=== PATIENT | female | born 1960 | race American Indian/Alaskan Native ===

== ENCOUNTER 2019-03-13 19:56 | Emergency (ER) | payer OTHER ==
--- NOTE | 2019-03-13 20:38 | Event Note ---
ED Screening Note ED Screening Note: large right mandibular abscess and dental pain diabetic abc intact This initial assessment/diagnostic orders/clinical plan/treatment(s) is/are subject to change based on patients health status, clinical progression and re- assessment by fellow clinical providers in the ED. Further treatment and workup at subsequent clinical providers discretion. Patient/guardian urged not to elope from the ED as their condition may be serious if not clinically assessed and managed. Initial orders include: labs
[2019-03-13 20:50] LABS: Hematocrit 38.4 % (30.3-42.9); Hemoglobin 12.7 gm/dl (10.1-14.3); Mean Corpuscular HGB Conc 33 % (30-34); Platelet Count 215 K/mm3 (140-440); Red Blood Count 5.64 M/mm3 (3.65-5.03); Red Cell Distribution Width 16.6 % (13.2-15.2)
[2019-03-13 20:51] LABS: Mean Corpuscular Volume 68 fl (79-97)
[2019-03-13 21:31] LABS: BUN/Creatinine Ratio 34; Blood Urea Nitrogen 17 mg/dL (7-17); Calcium 9.5 mg/dL (8.4-10.2); Hemolysis Index 15
[2019-03-13] MEDS ORDERED: TRIMOX PO ONE (22:00)
[2019-03-13] MEDS ORDERED: IBUPROFEN PO ONE (22:00)
--- NOTE | 2019-03-13 22:10 | Emergency Department Report ---
ED ENT HPI - General Chief complaint: Dental/Oral Stated complaint: TOOTHACHE SWOLLEN FACE AND GUMS Time Seen by Provider: 03/13/19 20:37 Source: patient Mode of arrival: Ambulatory Limitations: No Limitations - History of Present Illness MD complaint: tooth pain Onset/Timin -: days(s) Location: tooth # (28) Severity: severe Quality: stabbing, aching Consistency: constant Improves with: none Associated Symptoms: gum swelling, toothache. denies: fever, cough, pain with swallowing, sore throat - Related Data Previous Rx's Medication Instructions Recorded Last Taken Type Acetaminophen/Codeine [Tylenol 1 tab PO Q4HR PRN #12 tablet 03/13/19 Unknown Rx /Codeine # 3 tab] Amoxicillin [Amoxicillin TAB] 875 mg PO BID #20 tablet 03/13/19 Unknown Rx Ibuprofen [Motrin 800 MG tab] 800 mg PO Q8HR PRN #30 tablet 03/13/19 Unknown Rx Allergies Allergy/AdvReac Type Severity Reaction Status Date / Time No Known Allergies Allergy Unverified 03/13/19 21:59 ED Dental HPI - General Chief complaint: Dental/Oral Stated complaint: TOOTHACHE SWOLLEN FACE AND GUMS Time Seen by Provider: 03/13/19 20:37 Source: patient Mode of arrival: Ambulatory Limitations: No Limitations - Related Data Previous Rx's Medication Instructions Recorded Last Taken Type Acetaminophen/Codeine [Tylenol 1 tab PO Q4HR PRN #12 tablet 03/13/19 Unknown Rx /Codeine # 3 tab] Amoxicillin [Amoxicillin TAB] 875 mg PO BID #20 tablet 03/13/19 Unknown Rx Ibuprofen [Motrin 800 MG tab] 800 mg PO Q8HR PRN #30 tablet 03/13/19 Unknown Rx Allergies Allergy/AdvReac Type Severity Reaction Status Date / Time No Known Allergies Allergy Unverified 03/13/19 21:59 ED Review of Systems ROS: Stated complaint: TOOTHACHE SWOLLEN FACE AND GUMS Other details as noted in HPI Comment: All other systems reviewed and negative ENT: dental pain ED Past Medical Hx - Past Medical History Previous Medical History?: Yes Hx Diabetes: Yes Additional medical history: anemia, HLD - Surgical History Past Surgical History?: Yes Additional Surgical History: D&C - Social History Smoking Status: Former Smoker Substance Use Type: None - Medications Home Medications: Home Medications Medication Instructions Recorded Confirmed Last Taken Type Acetaminophen/Codeine [Tylenol 1 tab PO Q4HR PRN #12 tablet 03/13/19 Unknown Rx /Codeine # 3 tab] Amoxicillin [Amoxicillin TAB] 875 mg PO BID #20 tablet 03/13/19 Unknown Rx Ibuprofen [Motrin 800 MG tab] 800 mg PO Q8HR PRN #30 tablet 03/13/19 Unknown Rx ED Physical Exam - General Limitations: No Limitations General appearance: alert, in no apparent distress - Head Head exam: Present: atraumatic, normocephalic - Eye Eye exam: Present: normal appearance - ENT ENT exam: Present: mucous membranes moist - Expanded ENT Exam Expanded Teeth exam: Present: dental tenderness # (29), gingival enlargement - Neck Neck exam: Present: normal inspection, full ROM. Absent: tenderness - Neurological Exam Neurological exam: Present: alert, oriented X3 - Psychiatric Psychiatric exam: Present: normal affect, normal mood - Skin Skin exam: Present: warm, dry, intact, normal color. Absent: rash ED Course Vital Signs 03/13/19 20:33 Temperature 98.5 F Pulse Rate 98 H Respiratory 20 Rate Blood Pressure 147/79 O2 Sat by Pulse 96 Oximetry ED Medical Decision Making - Lab Data Result diagrams: 03/13/19 20:42 03/13/19 20:42 - Medical Decision Making 58-year-old -[place] female comes in for toothache and jaw swelling 1 day. Patient's been taking Tylenol and Aleve and ibuprofen without much pain management. Patient will be given ibuprofen 800 mg and amoxicillin 500 mg in ACC. Patient be discharged home on amoxicillin 875 mg twice a day and a prescription for ibuprofen 800 mg every 8 hours as needed and Tylenol 3 every 4- 6 hours dispense 12. Patient is to keep her appointment with her dentist next week. Patient is encouraged to continue all chronic medications as prescribed by her primary care provider. She is also encouraged to increase her fluid intake and advance her diet as tolerated. Critical care attestation.: If time is entered above; I have spent that time in minutes in the direct care of this critically ill patient, excluding procedure time. ED Disposition Clinical Impression: Dental abscess Disposition: DC-01 TO HOME OR SELFCARE Is pt being admited?: No Does the pt Need Aspirin: No Condition: Stable Instructions: Dental Abscess (ED) Additional Instructions: Complete antibiotics as prescribed. Pain medication as needed. Increase her fluid intake advance her diet as tolerated keep the appointment with her dentist next week. Prescriptions: Amoxicillin [Amoxicillin TAB] 875 mg PO BID #20 tablet Ibuprofen [Motrin 800 MG tab] 800 mg PO Q8HR PRN #30 tablet PRN Reason: Pain , Severe (7-10) Acetaminophen/Codeine [Tylenol /Codeine # 3 tab] 1 tab PO Q4HR PRN #12 tablet PRN Reason: Pain Referrals: [facility] [Outside] - 3-5 Days [facility] [Outside] - 3-5 Days [facility] [Outside] - 3-5 Days
[2019-03-13 22:36] VITALS: BP 123/78
== END 2019-03-13 22:37 | disposition home or self-care (01) ==
LOC: ED 19:56
DX: K04.7 Periapical abscess without sinus (principal); D64.9 Anemia, unspecified; E11.9 Type 2 diabetes mellitus without complications; E78.5 Hyperlipidemia, unspecified; Z87.891 Personal history of nicotine dependence; Z98.890 Other specified postprocedural states
CPT/HCPCS: 36415; 80048; 82962; 85027

== ENCOUNTER 2021-01-11 10:34 | Outpatient (CLI) | payer OTHER ==
[2021-01-11 11:48] LABS: Basophils % (Auto) 0.3 % (0.0-1.8); Eosinophils # (Auto) 0.2 K/mm3 (0.0-0.4); Eosinophils % (Auto) 2.4 % (0.0-4.3); Hematocrit 40.1 % (30.3-42.9); Hemoglobin 12.6 gm/dl (10.1-14.3); Lymphocytes # (Auto) 2.3 K/mm3 (1.2-5.4); Lymphocytes % (Auto) 28.2 % (13.4-35.0); Mean Corpuscular HGB Conc 32 % (30-34); Mean Corpuscular Volume 70 fl (79-97); Monocytes # (Auto) 0.4 K/mm3 (0.0-0.8); Monocytes % (Auto) 4.4 % (0.0-7.3); Platelet Count 208 K/mm3 (140-440); Red Blood Count 5.72 M/mm3 (3.65-5.03); Red Cell Distribution Width 16.4 % (13.2-15.2)
[2021-01-11 12:10] LABS: Alanine Aminotransferase 34 units/L (7-56); Albumin 3.8 g/dL (3.9-5); Blood Urea Nitrogen 20 mg/dL (7-17); Calcium 9.4 mg/dL (8.4-10.2); Chol/HDL Ratio 4.16 %; HDL Cholesterol 54 mg/dL (40-59); Hemolysis Index 5; LDL Cholesterol,Direct 161 mg/dL (50-130)
[2021-01-11 12:26] LABS: BUN/Creatinine Ratio 33
[2021-01-11 12:54] LABS: ABG Base Excess 2.6 mmol/L (-2.0-3.0); ABG HCO3 28.1 mmol/L (20.0-26.0); ABG Methemoglobin 0.3 % (0.0-1.5); ABG Oxygen Saturation 95.8 % (95.0-99.0); ABG PCO2 47.5 mm Hg; ABG PH 7.391 pH Units (7.350-7.450); ABG PO2 80.3 mm Hg (80.0-90.0)
--- NOTE | 2021-01-11 12:54 | XRay Report ---
CHEST 2 VIEWS INDICATION: RT ELEVATED HEMOD. COMPARISON: None FINDINGS: Support devices: None. Heart: Within normal limits. Lungs/pleura: No acute air space or interstitial disease. No pneumothorax. Additional findings: The right hemidiaphragm is mildly elevated by 1-2 rib levels compared to the lef t side. IMPRESSION: No acute findings. Mildly elevated right hemidiaphragm. Signer Name: Odilon Callejas Jr, MD Signed: 01/11/2021 12:50 PM Workstation Name: [id number]
--- NOTE | 2021-01-11 13:59 | Vascular Lab Report ---
DUPLEX DOPPLER LOWER EXTREMITY VEINS, BILATERAL INDICATION / CLINICAL INFORMATION: SWELLING BILATERAL LEG. TECHNIQUE: Duplex doppler imaging was performed through the veins of both lower extremities using venous lowell mary and other maneuvers. COMPARISON: None available. FINDINGS: Right Common Femoral vein: Negative. Right Femoral vein: Negative. Right Popliteal vein: Negative. Right Calf veins: Negative. Left Common Femoral vein: Negative. Left Femoral vein: Negative. Left Popliteal vein: Negative. Left Calf veins: Negative. Additional findings: Mild lower extremity subcutaneous edema.. IMPRESSION: 1. No sonographic evidence for DVT in either lower extremity. Signer Name: Raghavendra Bryant MD Signed: 01/11/2021 1:54 PM Workstation Name: [id number]
--- NOTE | 2021-01-11 14:21 | Cat Scan Report ---
CT angio chest INDICATION / CLINICAL INFORMATION: Shortness of breath.. TECHNIQUE: Axial CT images were obtained through the chest after injection of IV contrast. 3 plane MIP and/or 3D reconstructions were produced. All CT scans at this location are performed using CT dose reduction f or ALARA by means of automated exposure control. COMPARISON: None available. FINDINGS: PULMONARY ARTERIES: No pulmonary emboli. HEART: Multivessel coronary atherosclerotic. MEDIASTINUM / ABRIL: No significant abnormality. LUNGS: Mild subsegmental atelectasis in the right middle and lower lobes. No airspace disease. No ple ural effusion. No pneumothorax. ADDITIONAL FINDINGS: Elevated right hemidiaphragm.. UPPER ABDOMEN: No acute findings. SKELETAL STRUCTURES: No significant osseous abnormality. IMPRESSION: 1. No CT evidence for pulmonary embolism. 2. No significant findings. Signer Name: Tc Bain MD Signed: 01/11/2021 2:17 PM Workstation Name: [id number]
--- NOTE | 2021-01-13 10:40 | Electrocardiograph Report ---
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
== END 2021-01-11 10:35 | disposition home or self-care (01) ==
LOC: CT 10:34
PROVIDERS: ATTEND Internal Medicine
DX: J98.11 Atelectasis (principal); I70.0 Atherosclerosis of aorta; R60.0 Localized edema; E78.00 Pure hypercholesterolemia, unspecified; E11.9 Type 2 diabetes mellitus without complications; G47.9 Sleep disorder, unspecified; I25.10 Atherosclerotic heart disease of native coronary artery without angina pectoris; M79.89 Other specified soft tissue disorders; Z68.42 Body mass index [BMI] 45.0-49.9, adult
CPT/HCPCS: 36415; 71046; 71275; 80053; 80061; 82803; 84436; 84443; 85025; 85379; 93005; 93970; Q9967

== ENCOUNTER 2021-04-29 12:09 | Emergency (ER) | payer OTHER ==
[2021-04-29 13:37] LABS: Alanine Aminotransferase 34 units/L (7-56); Albumin 3.9 g/dL (3.9-5); Blood Urea Nitrogen 16 mg/dL (7-17); Calcium 9.3 mg/dL (8.4-10.2); Hemolysis Index 0
[2021-04-29 13:59] LABS: BUN/Creatinine Ratio 27
[2021-04-29 14:01] LABS: Basophils % (Auto) 0.1 % (0.0-1.8); Eosinophils # (Auto) 0.1 K/mm3 (0.0-0.4); Eosinophils % (Auto) 0.7 % (0.0-4.3); Hematocrit 39.7 % (30.3-42.9); Hemoglobin 12.4 gm/dl (10.1-14.3); Lymphocytes # (Auto) 2.7 K/mm3 (1.2-5.4); Lymphocytes % (Auto) 18.9 % (13.4-35.0); Mean Corpuscular HGB Conc 31 % (30-34); Monocytes # (Auto) 0.6 K/mm3 (0.0-0.8); Monocytes % (Auto) 4.3 % (0.0-7.3); Platelet Count 192 K/mm3 (140-440); Red Blood Count 5.67 M/mm3 (3.65-5.03); Red Cell Distribution Width 17.1 % (13.2-15.2)
[2021-04-29 14:01] LABS: Bacteria,Urine 1+ /HPF (Negative); Bilirubin,Urine NEG (Negative); Blood,Urine NEG (Negative); Color,Urine Yellow (Yellow); Mucus,Urine FEW /HPF
--- NOTE | 2021-04-29 14:04 | Emergency Department Report ---
ED Abdominal Pain HPI - General Chief Complaint: Abdominal Pain Stated Complaint: SHARP STOMACH PAIN / LEFT SIDE Time Seen by Provider: 04/29/21 13:18 Source: patient Mode of arrival: Ambulatory Limitations: No Limitations - History of Present Illness Initial Comments: Patient is a 60-year-old female presents emergency room complaints of left lower abdominal pain that began 2 days ago. She denies any nausea, vomiting, diarrhea, fever, urinary symptoms, hematochezia, melena, hematemesis. She states that she has been having normal bowel movements. Last medical history of diabetes and reports that she takes Victoza, HLD, anemia. No allergies to m edications. - Related Data Previous Rx's Medication Instructions Recorded Last Taken Type Acetaminophen/Codeine [Tylenol 1 tab PO Q4HR PRN #12 tablet 03/13/19 Unknown Rx /Codeine # 3 tab] Amoxicillin [Amoxicillin TAB] 875 mg PO BID #20 tablet 03/13/19 Unknown Rx Ibuprofen [Motrin 800 MG tab] 800 mg PO Q8HR PRN #30 tablet 03/13/19 Unknown Rx Ciprofloxacin HCl [Ciprofloxacin 500 mg PO BID 7 Days #28 tablet 04/29/21 Unknown Rx TAB] Promethazine [Phenergan] 25 mg PO Q8HR PRN #10 tab 04/29/21 Unknown Rx metroNIDAZOLE [Flagyl] 500 mg PO BID 7 Days #14 tab 04/29/21 Unknown Rx traMADoL [Ultram 50 MG tab] 50 mg PO Q6HR PRN #12 tablet 04/29/21 Unknown Rx Allergies Allergy/AdvReac Type Severity Reaction Status Date / Time No Known Allergies Allergy Unverified 03/13/19 21:59 ED Review of Systems ROS: Stated complaint: SHARP STOMACH PAIN / LEFT SIDE Other details as noted in HPI Comment: All other systems reviewed and negative ED Past Medical Hx - Past Medical History Previous Medical History?: Yes Hx Diabetes: Yes Additional medical history: anemia, HLD - Surgical History Past Surgical History?: Yes Additional Surgical History: D&C - Social History Smoking Status: Never Smoker Substance Use Type: Alcohol - Medications Home Medications: Home Medications Medication Instructions Recorded Confirmed Last Taken Type Acetaminophen/Codeine [Tylenol 1 tab PO Q4HR PRN #12 tablet 03/13/19 Unknown Rx /Codeine # 3 tab] Amoxicillin [Amoxicillin TAB] 875 mg PO BID #20 tablet 03/13/19 Unknown Rx Ibuprofen [Motrin 800 MG tab] 800 mg PO Q8HR PRN #30 tablet 03/13/19 Unknown Rx Ciprofloxacin HCl [Ciprofloxacin 500 mg PO BID 7 Days #28 tablet 04/29/21 Unknown Rx TAB] Promethazine [Phenergan] 25 mg PO Q8HR PRN #10 tab 04/29/21 Unknown Rx metroNIDAZOLE [Flagyl] 500 mg PO BID 7 Days #14 tab 04/29/21 Unknown Rx traMADoL [Ultram 50 MG tab] 50 mg PO Q6HR PRN #12 tablet 04/29/21 Unknown Rx ED Physical Exam - General Limitations: No Limitations General appearance: alert, in no apparent distress - Head Head exam: Present: atraumatic, normocephalic - Eye Eye exam: Present: normal appearance - ENT ENT exam: Present: mucous membranes moist - Respiratory Respiratory exam: Present: normal lung sounds bilaterally. Absent: respiratory distress, wheezes, rales, rhonchi, stridor, chest wall tenderness, accessory muscle use, decreased breath sounds, prolonged expiratory - Cardiovascular Cardiovascular Exam: Present: regular rate, normal rhythm, normal heart sounds. Absent: systolic murmur, diastolic murmur, rubs, gallop - GI/Abdominal GI/Abdominal exam: Present: soft, tenderness (LLQ), normal bowel sounds, other (protuberant abdomen). Absent: distended, guarding, rebound, rigid - Neurological Exam Neurological exam: Present: alert, oriented X3 - Psychiatric Psychiatric exam: Present: normal affect, normal mood - Skin Skin exam: Present: warm, dry, intact ED Course Vital Signs 04/29/21 04/29/21 12:41 16:01 Temperature 98.7 F Pulse Rate 88 91 H Respiratory 20 19 Rate Blood Pressure 135/67 Blood Pressure 131/71 [Right] O2 Sat by Pulse 96 99 Oximetry ED Medical Decision Making - Lab Data Result diagrams: 04/29/21 13:02 04/29/21 13:02 Lab Results 04/29/21 04/29/21 04/29/21 Range/Units 13:02 13:02 Unknown WBC 14.3 H (4.5-11.0) K/mm3 RBC 5.67 H (3.65-5.03) M/mm3 Hgb 12.4 (10.1-14.3) gm/dl Hct 39.7 (30.3-42.9) % MCV 70 L (79-97) fl MCH 22 L (28-32) pg MCHC 31 (30-34) % RDW 17.1 H (13.2-15.2) % Plt Count 192 (140-440) K/mm3 Lymph % (Auto) 18.9 (13.4-35.0) % Faulk % (Auto) 4.3 (0.0-7.3) % Eos % (Auto) 0.7 (0.0-4.3) % Baso % (Auto) 0.1 (0.0-1.8) % Lymph # (Auto) 2.7 (1.2-5.4) K/mm3 Faulk # (Auto) 0.6 (0.0-0.8) K/mm3 Eos # (Auto) 0.1 (0.0-0.4) K/mm3 Baso # (Auto) 0.0 (0.0-0.1) K/mm3 Seg Neutrophils % 76.0 H (40.0-70.0) % Seg Neutrophils # 10.8 H (1.8-7.7) K/mm3 Sodium 137 (137-145) mmol/L Potassium 4.2 (3.6-5.0) mmol/L Chloride 99.9 (98-107) mmol/L Carbon Dioxide 26 (22-30) mmol/L Anion Gap 15 mmol/L BUN 16 (7-17) mg/dL Creatinine 0.6 (0.6-1.2) mg/dL Estimated GFR > 60 ml/min BUN/Creatinine Ratio 27 % Glucose 149 H (65-100) mg/dL Calcium 9.3 (8.4-10.2) mg/dL Total Bilirubin 0.50 (0.1-1.2) mg/dL AST 29 (5-40) units/L ALT 34 (7-56) units/L Alkaline Phosphatase 113 (35-129) units/L Total Protein 7.8 (6.3-8.2) g/dL Albumin 3.9 (3.9-5) g/dL Albumin/Globulin Ratio 1.0 % Lipase 14 (13-60) units/L Urine Color Yellow (Yellow) Urine Turbidity Clear (Clear) Urine pH 6.0 (5.0-7.0) Ur Specific [place] 1.027 (1.003-1.030) Urine Protein 100 mg/dl (Negative) mg/dL Urine Glucose (UA) Neg (Negative) mg/dL Urine Ketones Neg (Negative) mg/dL Urine Blood Neg (Negative) Urine Nitrite Neg (Negative) Urine Bilirubin Neg (Negative) Urine Urobilinogen 2.0 (<2.0) mg/dL Ur Leukocyte Esterase Mod (Negative) Urine WBC (Auto) 33.0 H (0.0-6.0) /HPF Urine RBC (Auto) 3.0 (0.0-6.0) /HPF U Epithel Cells (Auto) 2.0 (0-13.0) /HPF Urine Bacteria (Auto) 1+ (Negative) /HPF Urine Mucus Few /HPF - Radiology Data Radiology results: report reviewed Ordering Physician: COLIN ASHTON Date of Service: 04/29/21 Procedure(s): CT abdomen pelvis w con Accession Number(s): [id number] cc: COLIN ASHTON CT ABDOMEN AND PELVIS WITH CONTRAST HISTORY: Left lower quadrant abdominal pain COMPARISON: None TECHNIQUE: Routine abdominal and pelvic CT exam performed following intravenous contrast administration.. All CT scans at this location are performed using CT dose reduction for ALARA by means of automated exposure control. FINDINGS: CT ABDOMEN: Lung Bases: No significant abnormality. Liver: No significant abnormality. Biliary: No significant abnormality. Spleen: No significant abnormality. Unenlarged. Pancreas: No significant abnormality. Adrenals: No significant abnormality. Kidneys: No significant abnormality. Lymphatics: No lymphadenopathy. Vasculature: No significant abnormality. Bowel/Peritoneum: There is moderate diverticulitis in the mid sigmoid colon without abscess. Normal appendix. CT PELVIC: : No significant abnormality. Lymphatics: No lymphadenopathy. Osseous Structures: No aggressive appearing osseous lesions. Additional Findings: None IMPRESSION: 1. Mild sigmoid diverticulitis without abscess. Signer Name: Toro Rodas MD Signed: 04/29/2021 3:08 PM Workstation Name: [id number] Transcribed By: EMIL Dictated By: Toro Rodas MD Electronically Authenticated By: Toro Rodas MD Signed Date/Time: 04/29/21 1508 DD/ 150 TD/TT: - Medical Decision Making Patient is a 60-year-old female presents emergency room complaints of left lower abdominal pain that began 2 days ago. She denies any nausea, vomiting, diarrhea, fever, urinary symptoms, hematochezia, melena, hematemesis. She states that she has been having normal bowel movements. Last medical history of diabetes and reports that she takes Victoza, HLD, anemia. No allergies to m edications. vitals are normal. on exam: LLQ ttp, no guarding, no rebound, no rigidity, normal bowel sounds, no peritoneal signs. Labs with elevated white blood cell count of 14,000. UA shows evidence of UTI. CT abdomen pelvis with IV contrast: 1. Mild sigmoid diverticulitis without abscess. Discussed all results with patient and answer questions. Patient will be given prescription for medications. Discussed the importance of follow-up and reexamination. Discussed return precautions. advised patient please take medication as prescribed. increase your water intake. do not drive or operate heavy machinery while taking pain medication. follow up with a primary care doctor. return to the emergency room for any new or worsening symptoms. Critical care attestation.: If time is entered above; I have spent that time in minutes in the direct care of this critically ill patient, excluding procedure time. ED Disposition Clinical Impression: Diverticulitis UTI (urinary tract infection) Qualifiers: Urinary tract infection type: acute cystitis Hematuria presence: without hematuria Qualified Code(s): N30.00 - Acute cystitis without hematuria Disposition: TO HOME OR SELFCARE Is pt being admited?: No Does the pt Need Aspirin: No Condition: Stable Instructions: Diverticulitis, Urinary Tract Infection, Adult, [id number], Abdominal Pain (ED) Additional Instructions: please take medication as prescribed. increase your water intake. do not drive or operate heavy machinery while taking pain medication. follow up with a primary care doctor. return to the emergency room for any new or worsening symptoms. Prescriptions: Ciprofloxacin HCl [Ciprofloxacin TAB] 500 mg PO BID 7 Days #28 tablet metroNIDAZOLE [Flagyl] 500 mg PO BID 7 Days #14 tab Promethazine [Phenergan] 25 mg PO Q8HR PRN #10 tab PRN Reason: nausea/vomiting traMADoL [Ultram 50 MG tab] 50 mg PO Q6HR PRN #12 tablet PRN Reason: Pain , Severe (7-10) Referrals: PRIMARY CAREMD [Primary Care Provider] - 2-3 Days MUSA MOORE MD [Staff Physician] - 2-3 Days [facility] [Provider Group] - 2-3 Days JERROD BALLARD MD [Staff Physician] - 2-3 Days Time of Disposition: 15:27 Print Language: LITHUANIAN
[2021-04-29 14:09] LABS: Mean Corpuscular Volume 70 fl (79-97)
--- NOTE | 2021-04-29 15:12 | Cat Scan Report ---
CT ABDOMEN AND PELVIS WITH CONTRAST HISTORY: Left lower quadrant abdominal pain COMPARISON: None TECHNIQUE: Routine abdominal and pelvic CT exam performed following intravenous contrast administrat ion.. All CT scans at this location are performed using CT dose reduction for ALARA by means of autom ated exposure control. FINDINGS: CT ABDOMEN: Lung Bases: No significant abnormality. Liver: No significant abnormality. Biliary: No significant abnormality. Spleen: No significant abnormality. Unenlarged. Pancreas: No significant abnormality. Adrenals: No significant abnormality. Kidneys: No significant abnormality. Lymphatics: No lymphadenopathy. Vasculature: No significant abnormality. Bowel/Peritoneum: There is moderate diverticulitis in the mid sigmoid colon without abscess. Normal a ppendix. CT PELVIC: : No significant abnormality. Lymphatics: No lymphadenopathy. Osseous Structures: No aggressive appearing osseous lesions. Additional Findings: None IMPRESSION: 1. Mild sigmoid diverticulitis without abscess. Signer Name: Toro Rodas MD Signed: 04/29/2021 3:08 PM Workstation Name: [id number]
[2021-04-29 16:02] VITALS: BP 131/71
== END 2021-04-29 16:01 | disposition home or self-care (01) ==
LOC: ED 12:09
DX: K57.92 Diverticulitis of intestine, part unspecified, without perforation or abscess without bleeding (principal); N39.0 Urinary tract infection, site not specified; E11.9 Type 2 diabetes mellitus without complications; Z98.890 Other specified postprocedural states; Z79.1 Long term (current) use of non-steroidal anti-inflammatories (NSAID); Z79.899 Other long term (current) drug therapy
CPT/HCPCS: 36415; 74177; 80053; 81001; 83690; 85025; 87086; 99284; Q9967